=== PATIENT | male | born 1960 | race Two or more races ===

== ENCOUNTER 2017-01-25 23:47 | Emergency (ER) | payer SELFPAY ==
[2017-01-25] MEDS ORDERED: LORazepam INJ* 2 MG/ML 1 ML VIAL IM ONE (23:57)
[2017-01-25] MEDS ORDERED: Haloperidol INJ IV/IM* 5 MG/ML AMP IM ONE (23:57)
[2017-01-25] MEDS ORDERED: diPHENhydraMINE IV* 50 MG/ML 1 ml VIAL (BENADRYL) IM ONE (23:57)
--- NOTE | 2017-01-26 06:39 | ED ---
Kimberlyn Luong Rebecca, scribed for Jayjay Le MD on 01/26/17 at 0050 . Substance Abuse/Use - HPI Summary HPI Summary: Pt is a 56 y/o M BIBA and police as a 2208 p/w EtOH intoxication. Per EMS report , pt admitted to drinking beer and smoking marijuana today. Upon arrival to [facility] ED, pt was combative and uncooperative. Level 5 caveat due to EtOH intoxication and combativeness. - History Of Current Complaint Chief Complaint: EDSubstanceAbuse Stated Complaint: 2208 Time Seen by Provider: 01/25/17 23:57 Hx Obtained From: EMS Hx From Patient Unobtainable Due To: Other - EtOH Intoxication/combativeness Ingestion History: Type/Name Of Drug - Alcohol and marijuana Overdose Characteristics: Oral Character: Angry - Combative - Allergies/Home Medications Allergies/Adverse Reactions: Allergies Allergy/AdvReac Type Severity Reaction Status Date / Time No Known Allergies Allergy Verified 07/20/12 08:39 PMH/Surg Hx/FS Hx/Imm Hx Endocrine/Hematology History: Denies: Hx Diabetes, Hx Thyroid Disease Cardiovascular History: Denies: Hx Hypertension Respiratory History: Denies: Hx Asthma, Hx Chronic Obstructive Pulmonary Disease (COPD) GI History: Denies: Hx Ulcer Infectious Disease History: Denies: Hx Hepatitis, Hx Human Immunodeficiency Virus (HIV), Traveled Outside the [place] in Last 30 Days - Family History Known Family History: Positive: Unknown - UNABLE TO OBTAIN -LEVEL 5 CAVEAT DUE TO ETOH INTOX/COMBATIVENESS - Social History Substance Use Type: Reports: None Hx Tobacco Use: Yes - 1 PACK A DAY X 12 YRS Review of Systems - ROS Summary Review of Systems Summary: level 5 caveat due to EtOH intoxication and combativeness Positive: Other - EtOH intoxication Positive: Other - Combative and uncooperative All Other Systems Reviewed And Are Negative: No Physical Exam - Summary Physical Exam Summary: Completion of physical exam limited due to level 5 caveat status. Psychiatric: Stuporous, agitated, noncooperative, yelling, dangerous to staff and self. Unable to perform full physical examination due to danger posed. Triage Information Reviewed: Yes Vital Signs On Initial Exam: Initial Vitals Resp 20 01/25/17 23:57 Vital Signs Reviewed: Yes Completion Of Physical Exam Limited Due To: Level 5 - EtOH intoxication Diagnostics - Vital Signs Vital Signs Temp Pulse Resp BP Pulse Ox 01/26/17 03:30 61 21 105/65 91 01/26/17 03:00 59 23 91/61 92 01/26/17 02:30 64 20 118/71 92 01/26/17 02:00 59 20 100/63 98 01/26/17 01:30 62 22 95/62 97 01/26/17 01:00 60 24 93/59 97 01/26/17 00:46 55 24 92 01/26/17 00:43 97.8 F 58 16 108/76 95 01/25/17 23:57 20 - Laboratory Lab Statement: Any lab studies that have been ordered have been reviewed, and results considered in the medical decision making process. Course/Dx - Course Course Of Treatment: DANGER TO SELF AND OTHERS WHEN FIRST ARRIVED. - Diagnoses Provider Diagnoses: Alcohol intoxication - Critical Care Time Critical Care Time: 30-74 min Discharge - Discharge Plan Condition: Stable Disposition: HOME Patient Education Materials: Alcohol Intoxication (ED) Referrals: Randa Eagle [Primary Care Provider] - [facility] [Outside] [facility] [Outside] [facility] [Outside] Additional Instructions: FOLLOW UP WITH YOUR DOCTOR. RETURN TO THE EMERGENCY DEPARTMENT FOR ANY WORSENING OF YOUR CONDITION OR QUESTIONS OR CONCERNS. The documentation as recorded by the Kimberlyn dos santos Rebecca accurately reflects the service I personally performed and the decisions made by , Jayjay Le MD.
[2017-01-26 09:46] VITALS: BP 118/67
--- NOTE | 2017-01-26 10:10 | ED ---
Nette Luong Alfonso, scribed for Benedict Hunter MD on 01/26/17 at 0936 . Progress - Progress Note Progress Note: This patient was signed out by Dr. Le. The patient came with ETOH intoxication. Dr. Le recommended discharging the patient when he was A& Ox3. At approximately 0930 the patient is A&Ox3, has normal cognition, and ambulating without any difficult. Therefore, the patient will be discharged with PCP follow up. Course/Dx - Course Course Of Treatment: DANGER TO SELF AND OTHERS WHEN FIRST ARRIVED. - Diagnoses Provider Diagnoses: Alcohol intoxication - Critical Care Time Critical Care Time: 30-74 min The documentation as recorded by the Nette dos santos Alfonso accurately reflects the service I personally performed and the decisions made by , Benedict Hunter MD.
== END 2017-01-26 09:20 | disposition home or self-care (01) ==
LOC: ED 23:47
DX: F10.129 Alcohol abuse with intoxication, unspecified (principal)
CPT/HCPCS: 96372; 99285; J1200; J1630; J2060

== ENCOUNTER 2018-12-06 12:44 | Emergency (ER) | payer BC ==
[2018-12-06] MEDS ORDERED: Albuterol 2.5 MG/3 ML NEB.SOL* (0.083%) INH ONE (13:54)
--- NOTE | 2018-12-06 13:57 | UC ---
General HPI - HPI Summary HPI Summary: Comes in with worsening SOB and chest pain. Chills and fever. States his breathing is significantly worse than it normally is. Has only been able to take water, unable to tolerate anything else. +N/V/D. Inhalers not providing any relief. No EtOH use. Smokes 1 pack every 3 days. +Productive cough. meds: Reviewed - History of Current Complaint Chief Complaint: UCRespiratory Stated Complaint: TROUBLE BREATHING Time Seen by Provider: 12/06/18 13:51 Pain Intensity: 7 - Allergy/Home Medications Allergies/Adverse Reactions: Allergies Allergy/AdvReac Type Severity Reaction Status Date / Time No Known Allergies Allergy Verified 12/06/18 13:47 Home Medications: Home Medications Albuterol/Ipratropium RESP(NF) [Combivent Respimat (NF)] 1 puff INH DAILY [History Confirmed 12/06/18] PMH/Surg Hx/FS Hx/Imm Hx Previously Healthy: Yes Respiratory History: COPD - Surgical History Surgical History: None - Family History Known Family History: Positive: Unknown - UNABLE TO OBTAIN -LEVEL 5 CAVEAT DUE TO ETOH INTOX/COMBATIVENESS - Social History Alcohol Use: unknown Alcohol Amount: ETOH unknown amt. Substance Use Type: None Substance Use Comment - Amount & Last Used: unknown Smoking Status (MU): Heavy Every Day Tobacco Smoker Review of Systems All Other Systems Reviewed And Are Negative: Yes Constitutional: Positive: Fever, Chills ENT: Positive: Sore Throat Respiratory: Positive: Shortness Of Breath, Cough Cardiovascular: Positive: Chest Pain Gastrointestinal: Positive: Vomiting, Diarrhea, Nausea Physical Exam Triage Information Reviewed: Yes Appearance: Ill-Appearing, Other: - respiratory distress Vital Signs: Initial Vital Signs Temp 101.8 F 12/06/18 13:44 Pulse 78 12/06/18 13:44 Resp 22 12/06/18 13:44 BP 129/72 12/06/18 13:44 Pulse Ox 95 12/06/18 13:44 ENT: Positive: Pharyngeal erythema, Nasal congestion, Other - post nasal drip Neck: Positive: Supple, Nontender Respiratory: Positive: Other: - increase in work of breathing, tachypneic, coarse rhonchi, b/l expiratory wheezing, poor aeration Cardiovascular: Positive: Tachycardia, Murmur:Sys:Grade _?_/ - 2 Abdomen Description: Positive: Nontender, Soft Course/Dx - Course Course Of Treatment: This is a 58 yr old with PMHx of smoking who presents with SOB, CP Assessment Mild to moderate respiratory distress Albuterol nebulizer given - with improvement of respiratory status and air movement IV insert on arrival solumedrol 125 mg IV x 1 given Tylenol 650 mg PO x 1 given Awaiting results of CXR Discussed sign out with Dr. Chin If clinically improving then no indication for transfer to the ER - Diagnoses Provider Diagnosis: Bronchopneumonia, COPD exacerbation Discharge - Sign-Out/Discharge Documenting (check all that apply): Sign-Out Patient - Dr. Chin All imaging exams completed and their final reports reviewed: Yes - Discharge Plan Condition: Fair Disposition: TRANS HIGHER LVL OF CARE FAC Referrals: Randa Eagle [Primary Care Provider] - - Billing Disposition and Condition Condition: FAIR Disposition: Trans Higher Lvl of Care Fac
[2018-12-06] MEDS ORDERED: methylPREDNISolone 125 MG* 2 ML VIAL IV ONE (13:59)
[2018-12-06] MEDS ORDERED: Acetaminophen TAB* 325 MG PO ONE (14:03)
--- NOTE | 2018-12-06 14:45 | UC ---
- Progress Note Progress Note: PT ARRIVED TO TACHYPNEIC, FEBRILE AND DISTINCTLY SOB. HEAVY SMOKER. FELT A LITTLE BETTER AFTER NEB TX, 125MG SOLUMEDROL AND TYLENOL BUT STILL SOB AT REST WITH VISIBLE INCREASED WOB. O2 SAT 95% ON RA AT REST. CXR MOST CONSISTENT WITH BRONCHOPNEUMONIA SUPERIMPOSED ON CHRONIC OBSTRUCTIVE PULMONARY DISEASE. PER RADIOLOGY WILL NEED TO EXCLUDE AN UNDERLYING NEOPLASTIC LESION. TRANSFER TO [facility] BY AMBULANCE. HARRIET MULLER RN NOTIFIED. - EKG/XRAY/CT XRAY: chest - The constellation of findings given the clinical context is most consistent with bronchopneumonia superimposed on chronic obstructive pulmonary disease. Radiographic follow-up after therapy warranted to assess for resolution and exclude an underlying neoplastic lesion. Course/Dx - Diagnoses Provider Diagnoses: Bronchopneumonia, COPD exacerbation Discharge - Sign-Out/Discharge Documenting (check all that apply): Patient Departure All imaging exams completed and their final reports reviewed: Yes - Discharge Plan Condition: Fair Disposition: TRANS HIGHER LVL OF CARE FAC Referrals: Randa Eagle [Primary Care Provider] - - Billing Disposition and Condition Condition: FAIR
[2018-12-06 15:06] VITALS: BP 104/67
== END 2018-12-06 15:15 | disposition short-term general hospital (02) ==
LOC: UCEAST 12:44
DX: J18.0 Bronchopneumonia, unspecified organism (principal); J44.1 Chronic obstructive pulmonary disease with (acute) exacerbation; F17.210 Nicotine dependence, cigarettes, uncomplicated
CPT/HCPCS: 71046; 93005; 96374; 99213; A9270-GY; G0463; J2930

== ENCOUNTER 2018-12-06 15:59 | Inpatient (IN) | payer BC ==
[2018-12-06] MEDS ORDERED: methylPREDNISolone 125 MG* 2 ML VIAL IV ONE (16:31)
[2018-12-06] MEDS ORDERED: Albuterol/Ipratropium NEB.SOL* Albuterol 2.5 MG/Ipratropium 0.5 MG 3 ML INH ONE (16:31)
[2018-12-06] MEDS ORDERED: ED cefTRIAXone 1 GM/50 ML 1 GM/50 ML PREMIX.SET IVPB ONE (16:33)
[2018-12-06] MEDS ORDERED: Azithromycin 500 mg/250 ml NS 500 MG/250 ML BAG IVPB ONE (16:33)
--- NOTE | 2018-12-06 16:35 | ED ---
Shortness of Breath - HPI Summary HPI Summary: Pt is a 58 y/o M presenting to the ED brought in by EMS for shortness of breath onset a couple of days ago. He went to this morning who did an XR and stated he has PNA. He reports a productive cough, fever, and shortness of breath with any kind of movement. He notes hx of COPD and smoking. provided 650mg Tylenol, 125mg Solumedrol, and two duonebs. - History of Current Complaint Chief Complaint: EDShortnessOfBreath Time Seen by Provider: 12/06/18 16:10 Hx Obtained From: Patient Onset/Duration: Gradual Onset, Lasting Days, Still Present Timing: Constant Current Severity: Moderate Dyspnea At: Exertion Aggrevating Factors: Movement Alleviating Factors: Nothing Associated Signs & Symptoms: Cough (Productive), Fever - Allergy/Home Medications Allergies/Adverse Reactions: Allergies Allergy/AdvReac Type Severity Reaction Status Date / Time No Known Allergies Allergy Verified 12/06/18 16:20 Home Medications: Home Medications Ibuprofen TAB* [Motrin TAB* 400 MG] 400 mg PO Q6H PRN 12/06/18 [History Confirmed 12/06/18] Ipratropium 0.5MG/2.5ML NEB* [Atrovent 0.5 MG NEB.NGUYEN*] 0.5 mg INH Q4H PRN 12/06 [History Confirmed 12/06/18] PMH/Surg Hx/FS Hx/Imm Hx Previously Healthy: Yes Endocrine/Hematology History: Denies: Hx Diabetes, Hx Thyroid Disease Cardiovascular History: Denies: Hx Hypertension Respiratory History: Reports: Hx Chronic Obstructive Pulmonary Disease (COPD) Denies: Hx Asthma GI History: Denies: Hx Ulcer Infectious Disease History: No Infectious Disease History: Denies: Hx Hepatitis, Hx Human Immunodeficiency Virus (HIV), Traveled Outside the US in Last 30 Days - Family History Known Family History: Positive: Unknown - UNABLE TO OBTAIN -LEVEL 5 CAVEAT DUE TO ETOH INTOX/COMBATIVENESS - Social History Alcohol Use: unk Alcohol Amount: ETOH unknown amt. Substance Use Type: Reports: None Substance Use Comment - Amount & Last Used: unknown Hx Tobacco Use: Yes - 1 PACK A DAY X 12 YRS Smoking Status (MU): Heavy Every Day Tobacco Smoker Review of Systems Positive: Fever Positive: Shortness Of Breath, Cough All Other Systems Reviewed And Are Negative: Yes Physical Exam - Summary Physical Exam Summary: Appearance: Well appearing, no pain distress Skin: warm, dry, reflects adequate perfusion Head/face: normal Eyes: EOMI, JOSE ENT: normal Neck: supple, non-tender Respiratory: bilateral wheezes and rhonchi Cardiovascular: RRR, pulses symmetrical Abdomen: non-tender, soft Musculoskeletal: normal, strength/ROM intact Neuro: normal, sensory motor intact, A&Ox3 Triage Information Reviewed: Yes Vital Signs On Initial Exam: Initial Vitals Temp Pulse Resp BP Pulse Ox 98.9 F 77 20 126/62 96 12/06/18 16:07 12/06/18 16:07 12/06/18 16:07 12/06/18 16:07 12/06/18 16:07 Vital Signs Reviewed: Yes Diagnostics - Vital Signs Vital Signs Temp Pulse Resp BP Pulse Ox 12/06/18 16:10 83 26 94 12/06/18 16:07 98.9 F 77 20 126/62 96 - Laboratory Result Diagrams: 12/06/18 16:47 12/06/18 16:47 Lab Statement: Any lab studies that have been ordered have been reviewed, and results considered in the medical decision making process. - EKG 1647 Cardiac Rate: NL - 80bpm EKG Rhythm: Sinus Rhythm ST Segment: Normal Ectopy: None Summary of EKG Findings: EKG at 1647 shows NSR at 80bpm with no STEMI. Course/Dx - Course Course Of Treatment: Pt is a 58 y/o M presenting to the ED brought in by EMS for shortness of breath onset a couple of days ago. He reports a productive cough, fever, and shortness of breath with any kind of movement. He notes hx of COPD and smoking. provided 650mg Tylenol, 125mg Solumedrol, and two duonebs. On exam, the pt has bilateral wheezes and rhonchi. EKG at 1647 shows NSR at 80bpm with no STEMI. I spoke with Dr. Aguilar at 1755 who will be accepting the pt to [facility] with dx of COPD exacerbation. - Diagnoses Differential Diagnosis/HQI/PQRI: Positive: Asthma, Bronchitis, COPD Exacerbation , Pneumonia Provider Diagnoses: COPD exacerbation, Pneumonia Discharge - Sign-Out/Discharge Documenting (check all that apply): Patient Departure - Discharge Plan Condition: Stable Disposition: ADMITTED TO [facility] Referrals: Jameel ALMONTE,Randa Mills [Primary Care Provider] - - Billing Disposition and Condition Condition: STABLE Disposition: Admitted to [facility] - Attestation Statements Document Initiated by Levon: Yes Documenting Scribe: Naima Gomez Provider For Whom Levon is Documenting (Include Credential): Black Armstrong MD. Scribe Attestation: I, Naima Gomez, scribed for Black Armstrong MD. on 12/06/18 at 1818. Scribe Documentation Reviewed: Yes Provider Attestation: The documentation as recorded by the levon, Naima Gomez accurately reflects the service I personally performed and the decisions made by me, Black Armstrong MD. Status of Scribe Document: Viewed Consult Consult: I spoke with Dr. Aguilar at 1755 who will be accepting the pt to [facility] with dx of COPD exacerbation.
[2018-12-06] MEDS ORDERED: cefTRIAXone(*) 1 GM ADVAN/BAG ONE (16:50)
[2018-12-06 16:59] LABS: ABS Lymphocytes 0.4 10^3/ul (1.0-4.8); ABS Monocytes 0.4 10^3/ul (0-0.8); ABS Neutrophils 18.2 10^3/ul (1.5-7.7); Hematocrit 40 % (42-52); Hemoglobin 13.3 g/dL (14.0-18.0); Lymphocyte % 1.9 %; Mean Corpuscular HGB Conc 33 g/dL (31-36); Mean Corpuscular Hemoglobin 31 pg (27-31); Mean Corpuscular Volume 92 fL (80-94); Mean Platelet Volume 7.3 fL (7.4-10.4); Platelet Count 265 10^3/uL (150-450); Red Blood Count 4.31 10^6 /uL (4.18-5.48); Red Cell Distribution Width 13 % (10.5-15); White Blood Count 18.9 10^3/uL (3.5-10.8)
[2018-12-06 17:08] LABS: Activated Partial Thrombo Time 33.1 seconds (26.0-38.0); INR 1.15 (0.82-1.09)
[2018-12-06 17:16] LABS: Albumin 3.7 g/dL (3.2-5.2); Albumin/Globulin Ratio 1.2 (1-3); BUN/Creatinine Ratio 21.8 (8-20); Calcium 9.3 mg/dL (8.6-10.3); EGFR African American 91.5 (>60); EGFR Non-African American 75.6 (>60); Globulin 3.2 g/dL (2-4); Potassium 3.7 mmol/L (3.5-5.0); Total Bilirubin 0.8 mg/dL (0.2-1.0); Total Protein 6.9 g/dL (6.4-8.9)
[2018-12-06] MEDS ORDERED: NS 0.9% 1000 ML** 2,000 ML IV ONE (18:55)
[2018-12-06] MEDS ORDERED: Ondansetron INJ* 2 MG/ML VIAL IV PRN (19:00)
[2018-12-06] MEDS ORDERED: Albuterol/Ipratropium NEB.SOL* Albuterol 2.5 MG/Ipratropium 0.5 MG 3 ML INH PRN (19:00)
[2018-12-06] MEDS ORDERED: Acetaminophen TAB* 325 MG PO PRN (19:00)
[2018-12-06] MEDS ORDERED: Enoxaparin(*) 40 MG/0.4 ML SYR SUBCUT SCH (20:00)
[2018-12-06] MEDS ORDERED: NS 0.9% 1000 ML** 1,000 ML IV SCH (21:00)
--- NOTE | 2018-12-06 21:33 | HP ---
CC: Randa Jorgensen NP* HISTORY AND PHYSICAL: DATE OF ADMISSION: 12/06/18 PRIMARY CARE PROVIDER: Randa Jorgensen NP ATTENDING PHYSICIAN: Dr. Michelle Aguilar* (dictated by DEON Monaco) CHIEF COMPLAINT: 1. Shortness of breath. 2. Fever. 3. Productive cough. HISTORY OF PRESENT ILLNESS: Mr. Rhodes is a 58-year-old male with a past medical history of COPD, who presented to Urgent Care today after 3 days of worsening productive cough, fever, and shortness of breath. He had a chest x- ray that revealed likely pneumonia. He received Tylenol, Solu-Medrol, and 2 DuoNebs. He then presented to the ER where he received further workup. He notes that he has had right lateral rib pain for the past 3 days as well. He has had difficulty sleeping and decreased appetite as well as nausea and vomiting. He notes that vomiting is due to coughing leading to emesis. The patient attempted to use his home nebulizers and inhalers, which he states were of no help. The patient is a smoker. He notes that he has been unable to smoke for the last 3 days. The patient has had fever, which has been relieved with Tylenol. He denies diarrhea. He again complains of right lateral rib pain , but no chest pain. No abdominal pain. No pain in the extremities. While in the ER, the patient received further workup. He was given 3 DuoNebs and antibiotics, azithromycin and ceftriaxone. He was also given Solu-Medrol. The hospitalist team was asked to evaluate the patient for admission. PAST MEDICAL HISTORY: 1. COPD. 2. Tobacco abuse. PAST SURGICAL HISTORY: C-spine herniated disk repair in approximately 2007. HOME MEDICATIONS: 1. Albuterol/ipratropium 1 puff inhalation daily. 2. Ibuprofen 400 mg p.o. q.6 hours p.r.n. 3. Ipratropium 0.5 mg/2.5 mL inhalation q.4 hours p.r.n. shortness of breath or wheeze. ALLERGIES: CODEINE. FAMILY HISTORY: Positive for lung cancer, diabetes mellitus, heart disease. Negative for CVA. SOCIAL HISTORY: The patient states that he smokes approximately half a pack per day for the last 40 years. He does not use alcohol stating he quit approximately 5 to 6 years ago. He works in maintenance at [employer]. He lives with his girlfriend in the event that he is unable to make his own medical decisions. He has appointed his girlfriend, Kinza Hartley, to be his surrogate decision maker. REVIEW OF SYSTEMS: A 10-point review of systems was performed and all the pertinent positives and negatives are in the HPI. All other systems are negative. PHYSICAL EXAMINATION GENERAL: Mr. Rhodes is a well-developed, well-nourished, middle-aged white man, who is sitting up in bed. He does not appear to be having any respiratory work of breathing. He is able to speak in full sentences. He does appear slightly diaphoretic. VITAL SIGNS: Temperature 99.6 temporal, heart rate 91, respiratory rate 18, oxygen saturation 97% on room air, blood pressure 127/62. HEENT: PERRL, EOMI. Non-icteric sclerae. Hearing grossly intact. Oral mucous membranes are moist without lesions. The pharynx is clear. RESPIRATORY: Symmetrical chest expansion without use of accessory muscles. There are wheezes and rhonchi throughout bilateral lung espinosa. No rales. CARDIOVASCULAR: Regular rate and rhythm. S1, S2 present without murmurs, rubs , clicks, or gallops. There is no JVD. ABDOMEN: Flat. Bowel sounds noted in all quadrants. The abdomen is soft. There is no tenderness to palpation. MUSCULOSKELETAL: Full range of motion without pain or deformity. EXTREMITIES: Skin is warm. The patient is diaphoretic. There is no clubbing or cyanosis. NEURO: The patient is awake. He is alert and oriented. DIAGNOSTIC STUDIES/LAB DATA: Chest x-ray, 12/06/18, impression: The constellation of findings given the clinical context is most consistent with bronchopneumonia superimposed on chronic obstructive pulmonary disease. Radiographic followup after therapy warranted to assess the resolution and exclude any underlying neoplastic lesions. Electrocardiogram, 12/06/18: Normal sinus rhythm. WBC 18.9, Hgb 13.3, Hct 40, absolute neutrophils 18.2. Sodium 130, chloride 98 , BUN/creatinine 21.8, glucose 142, lactic acid 0.8. ASSESSMENT AND PLAN: Mr. Rhodes is a 58-year-old male with a past medical history of chronic obstructive pulmonary disease and tobacco abuse, who presented to the ER today with complaints of productive cough, fever, shortness of breath, and was found to have pneumonia and chronic obstructive pulmonary disease exacerbation. The patient will be admitted inpatient for: 1. Pneumonia. The patient has productive cough, fever, shortness of breath. He is noted to have an abnormal chest x-ray that suggests possible pneumonia. The patient has been given ceftriaxone, azithromycin, and methylprednisolone in the ER. He will be continued on ceftriaxone and azithromycin and Tylenol p.r.n. fever. Urine for legionella and Streptococcus pneumoniae will be collected. 2. Chronic obstructive pulmonary disease exacerbation. The patient has a history of chronic obstructive pulmonary disease. He has wheezing throughout bilateral lung espinosa. He will be continued on methylprednisolone 60 IV q.8 hours until wheezing decreases and he can transition to oral prednisone. DuoNebs ordered q.4 hours while awake. The patient's home inhaler will be continued. 3. Tobacco abuse. The patient has had decreased use of tobacco in the last 3 days. He initially refused a patch, but has opted to use nicotine patch while inpatient. He is encouraged to continue to use these after discharge and quit smoking. 4. FEN. Heart-healthy diet, 75 cc per hour maintenance fluid. 5. Code status. Full code. 6. DVT prophylaxis. Based on the DVT Risk Assessment, the patient scores 2, which places him at moderate risk. He will be placed on Lovenox 40 q.24 hours. TIME SPENT: Approximately 60 minutes was spent on this admission; greater than half that time was spent with the patient obtaining history, performing physical , and reviewing the plan of care. The case has been reviewed with my attending, Dr. Aguilar, who is in agreement with the plan of care. DEON CHEUNG [id number]/[facility] #: [id number] ROEL
[2018-12-06] MEDS: Nicotine PATCH 21 MG/24 HR* PATCH TRANSDERM SCH (22:48)
[2018-12-07] MEDS: methylPREDNISolone SOD 40 MG* 1 ML VIAL IV SCH ×2 (00:54→07:50)
[2018-12-07] MEDS ORDERED: Nicotine Patch Removal NOTE PATCH OFF SCH (06:00)
[2018-12-07 06:24] LABS: ABS Lymphocytes 0.3 10^3/ul (1.0-4.8); ABS Monocytes 0.2 10^3/ul (0-0.8); ABS Neutrophils 15.3 10^3/ul (1.5-7.7); Hematocrit 35 % (42-52); Hemoglobin 11.9 g/dL (14.0-18.0); Mean Corpuscular HGB Conc 34 g/dL (31-36); Mean Corpuscular Hemoglobin 31 pg (27-31); Mean Corpuscular Volume 92 fL (80-94); Mean Platelet Volume 7.4 fL (7.4-10.4); Platelet Count 268 10^3/uL (150-450); Red Blood Count 3.83 10^6 /uL (4.18-5.48); Red Cell Distribution Width 13 % (10.5-15); White Blood Count 15.9 10^3/uL (3.5-10.8)
[2018-12-07 06:38] LABS: BUN/Creatinine Ratio 24.7 (8-20); Calcium 8.6 mg/dL (8.6-10.3); EGFR African American 111.6 (>60); EGFR Non-African American 92.3 (>60)
[2018-12-07] MEDS: Nicotine PATCH 21 MG/24 HR* PATCH TRANSDERM SCH (07:50)
[2018-12-07] MEDS ORDERED: Thiamine IV* 100 MG/ML 2 ML VIAL IM ONE (08:53)
[2018-12-07] MEDS ORDERED: Nicotine* 4MG (FRUIT FLAVOR) GUM PO PRN (08:55)
[2018-12-07] MEDS ORDERED: LORazepam TAB(*) 1 MG PO SCH (09:00)
[2018-12-07] MEDS ORDERED: Folic Acid TAB* 1 MG PO SCH (09:00)
[2018-12-07] MEDS ORDERED: Multivitamins/Minerals TAB PO SCH (09:00)
[2018-12-07 13:03] VITALS: BP 128/67
[2018-12-07] MEDS ORDERED: Calcium Carbonate CHEW TAB* 500 MG (TUMS) PO PRN (16:01)
[2018-12-07] MEDS ORDERED: cefTRIAXone(*) 1 GM in NS 0.9% 50 ML* 50 ML IVPB SCH (16:30)
[2018-12-07] MEDS ORDERED: Azithromycin IV(*) 250 MG in NS 0.9% 250 ML* 250 ML IVPB SCH (17:30)
--- NOTE | 2018-12-08 00:54 | DS ---
CC: Randa Jorgensen NP; Brenda Hewitt MD* DISCHARGE SUMMARY: DATE OF ADMISSION: 12/06/18 DATE OF DISCHARGE: Leaving against medical advice, 12/07/18. PRIMARY CARE PROVIDER: Randa Jorgensen NP MY ATTENDING FOR TODAY: Brenda Hewitt MD* (dictated by Lyubov Davis NP).* HOSPITAL COURSE: Please refer to admitting H and P on 12/06/18, but in short, Mr. Rhodes is a 58-year-old male patient with a history of COPD and tobacco abuse and possibly alcohol abuse in the past who presented at Urgent Care with complaints of 3 days of productive cough, fever, and shortness of breath. The patient had a chest x-ray at Urgent Care that revealed pneumonia. He was sent to the emergency department for further workup. He had received Tylenol, loading dose of Solu- Medrol, and DuoNeb. He had also reported at that time some nausea and vomiting as well as trying to use his inhalers at home and nebulizers which did not help. The patient did say he was also having some rib pain and just progressive malaise and weakness. The patient was admitted for pneumonia and possibly COPD exacerbation and tobacco abuse. I did have an extensive conversation with the patient this morning, because apparently the patient had told the nurse this morning that the patient wished to leave against medical advice. I had a lengthy discussion with the patient because his O2 saturation on room air initially at admission was 96% and then was 91% this morning. He also had increased cough. I explained to the patient I would repeat his chest x-ray, but I felt it was in his best interest to continue IV antibiotics given his history of COPD and now his bilateral pneumonia. His chest x-ray does reveal a left upper lobe and right lower lobe pneumonia. Although the patient seemed reluctant to stay in the hospital, he was agreeable to repeating the chest x-ray and continuing IV antibiotics. I received a call back to the bedside from the nurse that the patient was becoming very agitated, he was also very tremulous. He was placed on [place] protocol because he seemed to be detoxing from some substance. Although the patient did not endorse active alcohol abuse, he was presenting as though he was detoxing. The patient again was stating he was going to leave against medical advice. I did come back to the bedside and explained to the patient that I evaluated his chest x-ray, it does in fact appear that he has bilateral pneumonia of the left upper lobe and the right lower lobe, that his cough was increasing, that his breath sounds were with audible wheezing and very coarse, full of rhonchi, the patient also had a significant leukocytosis with an elevated white count of 18 at admission, and that again, it would be in the patient's best interest at least to stay until tomorrow to receive some additional dosage of IV antibiotics and nebulizers and then perhaps be able to discuss discharge in the morning; however , the patient became persistently agitated. Security was at the bedside. The patient did become loud with the nursing staff. I explained to the patient it was inappropriate for him to be yelling at the nursing staff. We did manage to verbally de-escalate the patient. I did ask him if he wished to have oral antibiotics sent to a pharmacy, for which he declined. The patient seemed very resistant to having any discussion of additional care. He kept making statements that we hated him and that we thought he was a bad sana and that we were responsible for him losing his job and some very inappropriate comments. I again explained to the patient that hospitalization was only in his best interest and his health was at the forefront of what we were trying to do for him. He seemed very disinterested in our explanation of his care. The patient did sign the leaving against medical advice form. I did explain to the patient that leaving against medical advice could result in further respiratory distress and decline, possibly respiratory failure and . The patient verbalized his understanding of these potential complications of his leaving. He did sign the form and did leave from the building without any further issues. I did explain to the patient he should come back to the emergency department if he felt progressively short of breath or had chest pain or any fevers or chills or any other symptoms that would warrant reevaluation. Again, the patient declined any further advice at that time. The patient's home medications are: 1. Albuterol and ipratropium. 2. Ibuprofen as needed. My suggestion to him would be to follow up at his primary care provider, Dr. Randa Jorgensen, at his earliest convenience. REVIEW OF SYSTEMS: His review of systems is unreliable as the patient did not wish to discuss how he was currently feeling. PHYSICAL EXAMINATION: I did not get to perform a full physical examination on the patient other than his lung sounds. His heart rate is tachycardic. Lung sounds were coarse with bilateral expiratory wheezes. DIAGNOSTIC STUDIES/LAB DATA: WBCs 15.9, RBCs 3.83, hemoglobin 11.9, hematocrit 35, platelets 268. Sodium 136, potassium 4.0, chloride 107, CO2 of 22, BUN 21, creatinine 0.85, glucose 148, lactic acid 0.8, calcium 8.6. LFTs within normal range. Troponin 0.00 and 0.01. BNP 90. Chest x-ray dated 12/07/18 showed left upper lobe and right lower lobe pneumonia. DISCHARGE DIAGNOSES: 1. Bilateral community-acquired pneumonia. 2. Chronic obstructive pulmonary disease. 3. Tobacco abuse. DISCHARGE MEDICATIONS: No changes from home meds as above. FOLLOWUP: The patient was instructed to return to the emergency department for any further symptomatology including shortness of breath, chest pain, fevers, or chills. DISPOSITION: The patient left against medical advice in stable condition. TIME SPENT: Approximately 1 hour counselling the patient. LYUBOV DAVIS NP [id number]/[facility] #: [id number] ROEL
[2018-12-08] MEDS ORDERED: Thiamine TAB* 100 MG TAB PO SCH (09:00)
== END 2018-12-07 18:15 | disposition left against medical advice (07) | DRG 140 ==
LOC: ED 15:59 → MED 19:00
PROVIDERS: ADMIT Internal Medicine; ATTEND Internal Medicine
DX: J44.1 Chronic obstructive pulmonary disease with (acute) exacerbation (principal); J18.1 Lobar pneumonia, unspecified organism; J44.0 Chronic obstructive pulmonary disease with (acute) lower respiratory infection; F17.210 Nicotine dependence, cigarettes, uncomplicated; Z83.3 Family history of diabetes mellitus; Z80.1 Family history of malignant neoplasm of trachea, bronchus and lung; Z82.49 Family history of ischemic heart disease and other diseases of the circulatory system; Z88.5 Allergy status to narcotic agent
CPT/HCPCS: 36415; 71046; 80048; 80053; 83605; 83880; 84484; 85025; 85610; 85730; 87040; 87899; 93005; 99284; A9270-GY; J0456; J0696; J1650; J2920; J3411

== ENCOUNTER 2020-03-14 19:55 | Inpatient (IN) ==
[2020-03-14] MEDS ORDERED: methylPREDNISolone 125 mg 2 ML VIAL IV ONE (19:56)
[2020-03-14] MEDS: Albuterol/Ipratropium NEB.SOL (2.5/0.5 MG) 3 ML NEB.SOLN INH ONE ×2 (20:19→23:35)
[2020-03-14 20:43] LABS: ABS Basophils 0.1 10^3/ul (0-0.2); ABS Lymphocytes 2.7 10^3/ul (1.0-4.8); ABS Monocytes 0.8 10^3/ul (0-0.8); ABS Neutrophils 3.4 10^3/ul (1.5-7.7); Eosinophil % 12.6 %; Hematocrit 42 % (42-52); Hemoglobin 14.2 g/dL (14.0-18.0); Lymphocyte % 33.7 %; Mean Corpuscular HGB Conc 34 g/dL (31-36); Mean Corpuscular Hemoglobin 32 pg (27-31); Mean Corpuscular Volume 94 fL (80-94); Mean Platelet Volume 7.2 fL (7.4-10.4); Platelet Count 261 10^3/uL (150-450); Red Blood Count 4.45 10^6 /uL (4.18-5.48); Red Cell Distribution Width 14 % (10-15)
[2020-03-14 21:01] LABS: Albumin 4.2 g/dL (3.2-5.2); Albumin/Globulin Ratio 1.6 (1-3); BUN/Creatinine Ratio 26.6 (8-20); C Reactive Protein 1.78 mg/L (<8.01); Calcium 9.4 mg/dL (8.6-10.3); EGFR African American 98.7 (>60); EGFR Non-African American 81.6 (>60); Globulin 2.6 g/dL (2-4); Potassium 4.4 mmol/L (3.5-5.0); Total Bilirubin 0.6 mg/dL (0.2-1.0); Total Protein 6.8 g/dL (6.4-8.9)
[2020-03-14 21:02] LABS: Troponin I 0.01 ng/mL (<0.03)
[2020-03-14] MEDS ORDERED: Albuterol/Ipratropium NEB.SOL (2.5/0.5 MG) 3 ML NEB.SOLN ONE (23:28)
[2020-03-15] MEDS: Albuterol/Ipratropium NEB.SOL (2.5/0.5 MG) 3 ML NEB.SOLN INH SCH ×6 (03:17→22:56)
[2020-03-15 05:16] LABS: ABS Lymphocytes 0.3 10^3/ul (1.0-4.8); ABS Neutrophils 7.1 10^3/ul (1.5-7.7); Eosinophil % 0.3 %; Hematocrit 41 % (42-52); Lymphocyte % 4.4 %; Mean Corpuscular HGB Conc 34 g/dL (31-36); Mean Corpuscular Hemoglobin 32 pg (27-31); Mean Corpuscular Volume 94 fL (80-94); Platelet Count 243 10^3/uL (150-450); Red Blood Count 4.38 10^6 /uL (4.18-5.48); Red Cell Distribution Width 14 % (10-15); White Blood Count 7.5 10^3/uL (3.5-10.8)
[2020-03-15 05:35] LABS: Albumin 4.1 g/dL (3.2-5.2); Albumin/Globulin Ratio 1.5 (1-3); BUN/Creatinine Ratio 29.9 (8-20); Calcium 9.5 mg/dL (8.6-10.3); EGFR African American 124.3 (>60); EGFR Non-African American 102.7 (>60); Globulin 2.8 g/dL (2-4); Magnesium 2.1 mg/dL (1.9-2.7); Potassium 4.9 mmol/L (3.5-5.0); Total Bilirubin 0.6 mg/dL (0.2-1.0); Total Protein 6.9 g/dL (6.4-8.9)
[2020-03-15] MEDS ORDERED: methylPREDNISolone SOD 40 mg/ml 1 ml VIAL IV SCH (09:00)
[2020-03-15] MEDS: methylPREDNISolone SOD 40 mg/ml 1 ml VIAL IV SCH (09:21)
[2020-03-15] MEDS: Heparin 5000 UNITS/ML 1 mL VIAL SUBCUT SCH ×2 (09:21→20:11)
[2020-03-15] MEDS ORDERED: Albuterol/Ipratropium RESP(NF) MDI (Combivent Respimat) INH SCH (13:00)
[2020-03-16] MEDS: Albuterol/Ipratropium NEB.SOL (2.5/0.5 MG) 3 ML NEB.SOLN INH SCH ×6 (03:10→23:02)
[2020-03-16] MEDS: methylPREDNISolone SOD 40 mg/ml 1 ml VIAL IV SCH (08:44)
[2020-03-16] MEDS: Heparin 5000 UNITS/ML 1 mL VIAL SUBCUT SCH ×2 (08:44→20:22)
[2020-03-16] MEDS ORDERED: Tiotropium Brom/Olodaterol MDI INH SCH (09:00)
[2020-03-16] MEDS: Mometasone/Formoter 200/5 MDI INH SCH (19:29)
[2020-03-17] MEDS: Albuterol/Ipratropium NEB.SOL (2.5/0.5 MG) 3 ML NEB.SOLN INH SCH ×5 (02:54→19:33)
[2020-03-17] MEDS: Mometasone/Formoter 200/5 MDI INH SCH ×3 (06:57→19:56)
[2020-03-17 07:32] LABS: ABS Basophils 0.1 10^3/ul (0-0.2); ABS Eosinophils 0.2 10^3/ul (0-0.6); ABS Lymphocytes 3.4 10^3/ul (1.0-4.8); ABS Monocytes 0.9 10^3/ul (0-0.8); ABS Neutrophils 7.2 10^3/ul (1.5-7.7); Eosinophil % 1.8 %; Hematocrit 40 % (42-52); Hemoglobin 13.8 g/dL (14.0-18.0); Mean Corpuscular HGB Conc 34 g/dL (31-36); Mean Corpuscular Hemoglobin 32 pg (27-31); Mean Corpuscular Volume 94 fL (80-94); Mean Platelet Volume 7.3 fL (7.4-10.4); Platelet Count 269 10^3/uL (150-450); Red Blood Count 4.29 10^6 /uL (4.18-5.48); Red Cell Distribution Width 14 % (10-15); White Blood Count 11.8 10^3/uL (3.5-10.8)
[2020-03-17 07:45] LABS: BUN/Creatinine Ratio 30.1 (8-20); Calcium 9.6 mg/dL (8.6-10.3); EGFR Non-African American 94.2 (>60); Potassium 4.3 mmol/L (3.5-5.0)
[2020-03-17] MEDS: methylPREDNISolone SOD 40 mg/ml 1 ml VIAL IV SCH (09:38)
[2020-03-17] MEDS: Heparin 5000 UNITS/ML 1 mL VIAL SUBCUT SCH ×2 (09:38→20:28)
[2020-03-17] MEDS: SPIRIVA Respimat (tiotropium) 2.5 mcg/inh Inhaler INH SCH (18:23)
[2020-03-17] MEDS ORDERED: Tiotropium Brom/Olodaterol MDI INH SCH (21:00)
[2020-03-18] MEDS: Albuterol/Ipratropium NEB.SOL (2.5/0.5 MG) 3 ML NEB.SOLN INH SCH ×4 (02:53→19:27)
[2020-03-18 06:57] LABS: ABS Basophils 0.1 10^3/ul (0-0.2); ABS Eosinophils 0.2 10^3/ul (0-0.6); ABS Neutrophils 6.9 10^3/ul (1.5-7.7); Eosinophil % 1.8 %; Hematocrit 38 % (42-52); Hemoglobin 13.3 g/dL (14.0-18.0); Lymphocyte % 32.9 %; Mean Corpuscular HGB Conc 35 g/dL (31-36); Mean Corpuscular Hemoglobin 33 pg (27-31); Mean Corpuscular Volume 93 fL (80-94); Mean Platelet Volume 7.3 fL (7.4-10.4); Platelet Count 260 10^3/uL (150-450); Red Blood Count 4.09 10^6 /uL (4.18-5.48); Red Cell Distribution Width 14 % (10-15); White Blood Count 12.2 10^3/uL (3.5-10.8)
[2020-03-18 07:17] LABS: EGFR African American 128.1 (>60); EGFR Non-African American 105.9 (>60); Potassium 4.2 mmol/L (3.5-5.0)
[2020-03-18] MEDS: Heparin 5000 UNITS/ML 1 mL VIAL SUBCUT SCH ×2 (07:40→20:59)
[2020-03-18] MEDS: Mometasone/Formoter 200/5 MDI INH SCH ×2 (07:58→19:27)
[2020-03-18] MEDS: SPIRIVA Respimat (tiotropium) 2.5 mcg/inh Inhaler INH SCH (08:04)
[2020-03-19] MEDS: Albuterol/Ipratropium NEB.SOL (2.5/0.5 MG) 3 ML NEB.SOLN INH SCH (00:32)
[2020-03-19] MEDS ORDERED: Albuterol 2.5mg/3 ml (0.083%) NEB.SOLN INH SCH (07:00)
[2020-03-19] MEDS: Heparin 5000 UNITS/ML 1 mL VIAL SUBCUT SCH (07:43)
[2020-03-19] MEDS: Mometasone/Formoter 200/5 MDI INH SCH (07:52)
[2020-03-19] MEDS: SPIRIVA Respimat (tiotropium) 2.5 mcg/inh Inhaler INH SCH (07:53)
[2020-03-19] MEDS ORDERED: Albuterol HFA INHALER 8 gm MDI INH PRN (14:06)
[2020-03-19 15:40] VITALS: BP 125/70
== END 2020-03-19 16:30 | disposition home or self-care (01) | DRG 140 ==
LOC: ED 19:55 → ICU 03-15 00:34 → MED 03-15 12:16
PROVIDERS: ADMIT Nurse Practitioner Family; ATTEND Internal Medicine

== ENCOUNTER 2022-02-01 21:13 | Observation (INO) ==
[2022-02-01] MEDS ORDERED: Albuterol HFA INHALER 8 gm MDI INH ONE (21:40)
[2022-02-01] MEDS ORDERED: Ipratropium HFA INHALER(NF) (ALTERNATIVE = NEBS) INH ONE (21:40)
[2022-02-01 22:14] LABS: ABS Lymphocytes 1.1 10^3/ul (1.0-4.8); ABS Monocytes 1.3 10^3/ul (0-0.8); ABS Neutrophils 9.4 10^3/ul (1.5-7.7); Eosinophil % 0.3 %; Hematocrit 38 % (42-52); Hemoglobin 12.5 g/dL (14.0-18.0); Lymphocyte % 9.3 %; Mean Corpuscular HGB Conc 33 g/dL (31-36); Mean Corpuscular Hemoglobin 31 pg (27-31); Mean Corpuscular Volume 93 fL (80-94); Platelet Count 249 10^3/uL (150-450); Red Blood Count 4.06 10^6 /uL (4.18-5.48); Red Cell Distribution Width 14 % (10-15); White Blood Count 11.9 10^3/uL (3.5-10.8)
[2022-02-01 22:46] LABS: Albumin 3.8 g/dL (3.2-5.2); Albumin/Globulin Ratio 1.5 (1-3); Globulin 2.6 g/dL (2-4); Potassium 4.3 mmol/L (3.5-5.0); Total Bilirubin 0.6 mg/dL (0.2-1.0); Total Protein 6.4 g/dL (6.4-8.9); eGFR CKD-EPI 100.4 (>60)
[2022-02-01] MEDS ORDERED: Albuterol/Ipratropium NEB.SOL (2.5/0.5 MG) 3 ML NEB.SOLN INH ONE (23:25)
[2022-02-02 00:19] LABS: High Sensitivity Troponin 1 Hr 11 pg/mL (<20)
[2022-02-02] MEDS ORDERED: Albuterol 2.5mg/3 ml (0.083%) NEB.SOLN INH ONE (01:47)
[2022-02-02] MEDS ORDERED: Azithromycin 500 mg/250 ml NS 500 MG/250 ML BAG IVPB ONE (01:55)
[2022-02-02] MEDS ORDERED: Albuterol/Ipratropium NEB.SOL (2.5/0.5 MG) 3 ML NEB.SOLN INH PRN (01:55)
[2022-02-02] MEDS ORDERED: cefTRIAXone 1 gm/50 mL D5W 1 GM/50 ML BAG IV ONE (02:00)
[2022-02-02] MEDS ORDERED: methylPREDNISolone SOD SUCC 40 mg/ml 1 ml VIAL IV ONE (02:30)
[2022-02-02 02:37] LABS: Magnesium 1.8 mg/dL (1.9-2.7)
[2022-02-02] MEDS ORDERED: Magnesium Sulfate IV 1GM/100ML 1 GM/100 ML BAG IV ONE (02:41)
[2022-02-02 05:54] LABS: ABS Lymphocytes 0.6 10^3/ul (1.0-4.8); ABS Monocytes 0.6 10^3/ul (0-0.8); ABS Neutrophils 9.4 10^3/ul (1.5-7.7); Eosinophil % 0.2 %; Hematocrit 38 % (42-52); Hemoglobin 12.9 g/dL (14.0-18.0); Lymphocyte % 5.8 %; Mean Corpuscular HGB Conc 34 g/dL (31-36); Mean Corpuscular Hemoglobin 31 pg (27-31); Mean Corpuscular Volume 93 fL (80-94); Mean Platelet Volume 7.1 fL (7.4-10.4); Platelet Count 256 10^3/uL (150-450); Red Blood Count 4.13 10^6 /uL (4.18-5.48); Red Cell Distribution Width 14 % (10-15); White Blood Count 10.7 10^3/uL (3.5-10.8)
[2022-02-02] MEDS ORDERED: Enoxaparin 40 MG/0.4 ML SYR SUBCUT SCH (06:00)
[2022-02-02 06:30] LABS: Calcium 8.8 mg/dL (8.6-10.3); Magnesium 2.1 mg/dL (1.9-2.7); Potassium 4.2 mmol/L (3.5-5.0); eGFR CKD-EPI 104.6 (>60)
[2022-02-02] MEDS ORDERED: Nicotine PATCH 14 MG/24 HR PATCH TRANSDERM SCH (09:00)
[2022-02-02 11:11] VITALS: BP 123/72
[2022-02-03] MEDS ORDERED: cefTRIAXone 1 gm/50 mL D5W 1 GM/50 ML BAG IV SCH (06:00)
== END 2022-02-02 14:10 | disposition left against medical advice (07) ==
LOC: EDHOLD 21:13 → ED 21:13 → SUATTDRO 02-02 01:52 → MED 02-02 04:50
PROVIDERS: ADMIT Internal Medicine; ATTEND Internal Medicine